=== PATIENT | male | born 1990 | race Two or more races ===

== ENCOUNTER 2024-10-25 23:23 | Emergency (ER) | payer OTHER, SELFPAY ==
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
--- NOTE | ~2024-10-25 | XR_ITS ---
CHEST RADIOGRAPH, PA AND LATERAL CLINICAL HISTORY: CHEST PAIN with shoulder pain . COMPARISON: None available TECHNIQUE: PA and lateral views of the chest. FINDINGS The cardiomediastinal silhouette is unremarkable. The lungs are clear. IMPRESSION: No focal infiltrate or effusion. Reviewed, dictated and finalized at location A.
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
[2024-10-25 23:24] VITALS: BP 150/95; PULSE 74; RESP 18; TEMP 36.8; O2SAT 100
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
[2024-10-26 02:06] VITALS: BP 150/95; PULSE 74; RESP 18; O2SAT 100
[2024-10-26] MEDS: IBUPROFEN 600 MG TABLET PO (02:12)
== END 2024-10-26 02:14 | disposition home or self-care (01) ==
PROVIDERS: Emergency Provider Physician Assistant
DX: S01.312A Laceration without foreign body of left ear, initial encounter (principal); S16.1XXA Strain of muscle, fascia and tendon at neck level, initial encounter; S46.912A Strain of unspecified muscle, fascia and tendon at shoulder and upper arm level, left arm, initial encounter; V43.62XA Car passenger injured in collision with other type car in traffic accident, initial encounter
CPT/HCPCS: 12011; 70450; 70486; 71046; 72125; 73590; 99284; A9270; J2003; L0140

== ENCOUNTER 2024-10-31 17:55 | Emergency (ER) | payer OTHER, SELFPAY ==
[2024-10-31 18:08] VITALS: BP 136/83; PULSE 73; RESP 18; TEMP 36.3; O2SAT 98
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
[2024-10-31 18:18] VITALS: BP 126/88; PULSE 70; RESP 16; RESP 18; TEMP 36.7; O2SAT 100; O2SAT 98
== END 2024-10-31 18:29 | disposition home or self-care (01) ==
LOC: ANHED 18:24
PROVIDERS: Emergency Provider Physician Assistant
DX: Z48.02 Encounter for removal of sutures (principal)
CPT/HCPCS: 99281